=== PATIENT | female | born 1975 | race Caucasian/White ===

== ENCOUNTER 2017-09-15 14:35 | Outpatient (CLI) | payer OTHER | END 2017-09-15 14:54 | disposition home or self-care (01) | LOC: RAD 14:35 | DX: M25.521 Pain in right elbow (principal); M54.2 Cervicalgia; M54.5 Low back pain; M54.6 Pain in thoracic spine ==

== ENCOUNTER 2018-06-27 09:27 | Outpatient (CLI) | payer OTHER | END 2018-06-27 09:29 | disposition home or self-care (01) | LOC: RAD 09:27 | DX: M54.2 Cervicalgia (principal); M54.5 Low back pain; M54.6 Pain in thoracic spine ==

== ENCOUNTER → 2019-01-09 | Outpatient (CLI) | payer OTHER | END | disposition home or self-care (01) | LOC: LAB SALUS 08:00 | DX: Z13.220 Encounter for screening for lipoid disorders (principal); Z11.59 Encounter for screening for other viral diseases; Z13.1 Encounter for screening for diabetes mellitus; Z11.4 Encounter for screening for human immunodeficiency virus [HIV]; Z72.51 High risk heterosexual behavior; Z11.3 Encounter for screening for infections with a predominantly sexual mode of transmission; Z12.11 Encounter for screening for malignant neoplasm of colon ==

== ENCOUNTER → 2020-02-26 | Outpatient (CLI) | payer OTHER | END | disposition home or self-care (01) | LOC: RAD 12:56 | DX: J44.9 Chronic obstructive pulmonary disease, unspecified (principal) ==

== ENCOUNTER → 2020-03-19 | Emergency (ER) | payer OTHER ==
[~2020-03-19] VITALS: Ht 160 cm; Wt 59.0 kg
== END | disposition expired ==
LOC: ER 12:11
DX: I46.9 Cardiac arrest, cause unspecified (principal); M13.89 Other specified arthritis, multiple sites; M25.59 Pain in other specified joint; E86.0 Dehydration; B34.9 Viral infection, unspecified; A40.0 Sepsis due to streptococcus, group A; Z20.822 Contact with and (suspected) exposure to COVID-19